=== PATIENT | male | born 1950 | race Caucasian/White ===

== ENCOUNTER 2024-07-13 07:27 | Outpatient (CLI) | payer MEDICARE, OTHER | END 2024-07-13 07:28 | disposition home or self-care (01) | LOC: CSHMRI 07:27 | PROVIDERS: ATTEND Surgery | DX: M48.062 Spinal stenosis, lumbar region with neurogenic claudication (principal); M47.816 Spondylosis without myelopathy or radiculopathy, lumbar region; M48.07 Spinal stenosis, lumbosacral region | CPT/HCPCS: 72120; 72148 ==